=== PATIENT | female | born 1990 | race Caucasian/White ===

== ENCOUNTER 2017-08-25 18:05 | Emergency (ER) | payer OTHER ==
[~2017-08-25] VITALS: Ht 160 cm; Wt 64.0 kg
[~2017-08-25 18:05] MED LIST: AFRIN MENTHOL S15 ML NS; BENTYL 20 MG TA20 M1 PO; CIPRO500 MG PO; MOBIC15 MG PO; NOHOMEMEDICATIONS; NORCO 5-325 TA1 EACH PO; ZOFRAN ODT4 MG PO
[2017-08-25] MEDS ORDERED: BENADRYL25 MG PO (18:25)
[2017-08-25] MEDS ORDERED: TRIAMCINOLONE A80 G2 TOP (18:25)
[2017-08-25 18:38] VITALS: BP 98/55
== END 2017-08-25 18:38 | disposition home or self-care (01) ==
LOC: M.ERS 18:05
DX: R21 Rash and other nonspecific skin eruption (principal); F17.210 Nicotine dependence, cigarettes, uncomplicated; Z88.8 Allergy status to other drugs, medicaments and biological substances

== ENCOUNTER 2017-09-07 22:03 | Emergency (ER) | payer OTHER ==
[~2017-09-07] VITALS: Ht 160 cm; Wt 64.0 kg
[~2017-09-07 22:03] MED LIST changes: +BENADRYL25 MG PO; +TRIAMCINOLONE A80 G2 TOP
[2017-09-07 22:31] LABS: ABSOLUTE BASOPHILS 0.1 thou/uL (0.0-0.2); ABSOLUTE EOSINOPHILS 0.1 thou/uL (0.0-0.7); ABSOLUTE LYMPHOCYTES 2.1 thou/uL (0.8-5.3); ABSOLUTE MONOCYTES 0.6 thou/uL (0.0-1.2); ABSOLUTE NEUTROPHILS 6.9 thou/uL (1.6-8.1); BASOPHILS 0.6 %; EOSINOPHILS 1.2 %; HEMATOCRIT 39.3 % (37.0-47.0); HEMOGLOBIN 13.4 gm/dL (12.0-15.0); LYMPHOCYTES 21.4 %; MCH 31.5 pg (26.0-34.0); MCV 92.6 fL (80.0-100.0); MONOCYTES 6.1 %; MPV 8.9 fl. (7.2-11.1); NUCLEATED RBCS 0 /100WBC; PLATELET COUNT* 158 thou/uL (150-400); POLYS 70.7 %; RBC 4.24 mil/uL (4.20-5.00); RDW-CV 11.9 % (10.5-14.5); WBC 9.8 thou/uL (4.0-11.0)
[2017-09-07 22:38] LABS: CALCIUM 8.5 mg/dL (8.5-10.1); CREATININE 0.7 mg/dL (0.6-1.3); POTASSIUM 3.3 mmol/L (3.5-5.1)
[2017-09-07 22:43] LABS: ALBUMIN 3.4 g/dL (3.4-5.0); TOTAL BILIRUBIN 0.3 mg/dL (<0.1-1.0); TOTAL PROTEIN 6.6 g/dL (6.4-8.2)
[2017-09-07 23:19] LABS: URINE BILIRUBIN NEGATIVE (Negative); URINE BLOOD 3+ (Negative); URINE CLARITY CLOUDY; URINE COLOR YELLOW; URINE GLUCOSE-RANDOM NEGATIVE (Negative); URINE KETONES NEGATIVE (Negative); URINE LEUKOCYTES-REFLEX NEGATIVE (Negative); URINE NITRITE-REFLEX NEGATIVE (Negative); URINE PROTEIN NEGATIVE (Negative); URINE SPECIFIC GRAVITY >= 1.030 (1.005-1.030); URINE UROBILINOGEN 0.2 E.U./dl (0.2-1.0)
[2017-09-07 23:24] LABS: SQUAMOUS 0-3 Few /LPF (0-3); URINE WBC-REFLEX None Seen /HPF (0-5)
[2017-09-07 23:25] LABS: AMORPHOUS URATES Many /LPF (None Seen); BACTERIA-REFLEX 1-9 Few /HPF (None Seen); CASTS None Seen /LPF (None Seen); MUCUS 0-3 Light strn/LPF (None Seen)
[2017-09-08 01:08] VITALS: BP 119/70
== END 2017-09-08 01:10 | disposition home or self-care (01) ==
LOC: M.ERS 22:03
PROVIDERS: Emergency Medicine; Physician Assistant
DX: O20.0 Threatened abortion (principal); O99.331 Smoking (tobacco) complicating pregnancy, first trimester; Z88.8 Allergy status to other drugs, medicaments and biological substances; Z3A.01 Less than 8 weeks gestation of pregnancy

== ENCOUNTER 2020-08-28 21:01 | Emergency (ER) | payer OTHER, MEDICAID ==
[~2020-08-28] VITALS: Ht 160 cm; Wt 72.6 kg
[2020-08-28 22:09] LABS: ABSOLUTE LYMPHOCYTES 0.7 thou/uL (0.8-5.3); ABSOLUTE MONOCYTES 0.5 thou/uL (0.0-1.2); ABSOLUTE NEUTROPHILS 3.5 thou/uL (1.6-8.1); BASOPHILS 0.1 %; EOSINOPHILS 0.5 %; HEMATOCRIT 39.9 % (37.0-47.0); HEMOGLOBIN 13.5 gm/dL (12.0-15.0); LYMPHOCYTES 14.7 %; MCH 30.9 pg (26.0-34.0); MCHC 33.9 g/dL (28.0-37.0); MONOCYTES 9.7 %; MPV 9.3 fl. (7.2-11.1); NUCLEATED RBCS 0 /100WBC; PLATELET COUNT* 110 thou/uL (150-400); RBC 4.39 mil/uL (4.20-5.00); WBC 4.7 thou/uL (4.0-11.0)
[2020-08-28 22:16] LABS: CALCIUM 8.7 mg/dL (8.5-10.1); CREATININE 0.8 mg/dL (0.6-1.3); POTASSIUM 3.6 mmol/L (3.5-5.1)
[2020-08-28] MEDS ORDERED: ZOFRAN ODT4 MG PO ×2 (22:39→22:40)
[2020-08-29 00:50] VITALS: BP 102/59
== END 2020-08-29 00:50 | disposition home or self-care (01) ==
LOC: M.ERS 21:01
PROVIDERS: Emergency Medicine
DX: R11.2 Nausea with vomiting, unspecified (principal); R19.7 Diarrhea, unspecified; F17.210 Nicotine dependence, cigarettes, uncomplicated; Z98.890 Other specified postprocedural states

== ENCOUNTER 2021-01-27 20:05 | Emergency (ER) | payer OTHER, MEDICAID ==
[~2021-01-27] VITALS: Ht 160 cm; Wt 63.5 kg
[2021-01-27 21:18] VITALS: BP 124/72
== END 2021-01-27 21:18 | disposition home or self-care (01) ==
LOC: M.ERS 20:05
DX: S93.401A Sprain of unspecified ligament of right ankle, initial encounter (principal); F17.210 Nicotine dependence, cigarettes, uncomplicated; Z98.890 Other specified postprocedural states; Z88.8 Allergy status to other drugs, medicaments and biological substances; W17.2XXA Fall into hole, initial encounter; Y93.02 Activity, running; Y92.096 Garden or yard of other non-institutional residence as the place of occurrence of the external cause; Y99.8 Other external cause status

== ENCOUNTER 2021-03-18 18:39 | Emergency (ER) | payer OTHER, MEDICAID ==
[~2021-03-18] VITALS: Ht 160 cm; Wt 65.8 kg
[2021-03-18 19:39] LABS: INFLUENZA A ANTIGEN Negative (Negative); INFLUENZA B ANTIGEN Negative (Negative)
[2021-03-18] MEDS ORDERED: AUGMENTIN 875-1 EACH PO (19:51)
[2021-03-18] MEDS ORDERED: PROAIR HFA8.5 GM INH (19:51)
[2021-03-18] MEDS ORDERED: PREDNISONE 20 M20 MG PO (19:51)
[2021-03-18 20:01] VITALS: BP 122/74
--- NOTE | 2021-03-19 10:00 | EKG ---
[place] [address] ELECTROCARDIOGRAM REPORT Name: HUGONANCY MARTI Room: [facility]#: [id number] Admission: 03/18/21 Attend Phys: Discharge: 03/18/21 Date of : 89 Date of Service: 03/18/21 1900 Report #: [id number] THIS REPORT FOR: //name// [facility] ED Test Date: 2021-03-18 Test Time: 19:00:07 Pat Name: NANCY BRYAN Department: Room: Gender: Retail Sales Merchandiser: : 1990 Requested By: Sonia Velazquez Order Number: [id number] MD: Miguel Laughlin Measurements Intervals [place] Rate: 75 P: 57 NM: 172 QRS: 75 QRSD: 90 T: 61 QT: 380 QTc: 425 Interpretive Statements Sinus rhythm Baseline wander in lead(s) V1,V2,V3 No previous ECG available for comparison Electronically Signed On 03-19-2021 10:00:18 [employer]ALL[employer] TECHNICIAN by Miguel Laughlin [email or web address] <ELECTRONICALLY SIGNED> By: Miguel Laughlin MD, [facility] 03/19/21 1000 190 99 Miguel Laughlin MD, [facility] /EPI
== END 2021-03-18 20:03 | disposition home or self-care (01) ==
LOC: M.ERS 18:39
PROVIDERS: Physician Assistant
DX: J01.90 Acute sinusitis, unspecified (principal); Z20.822 Contact with and (suspected) exposure to COVID-19; J06.9 Acute upper respiratory infection, unspecified; G43.909 Migraine, unspecified, not intractable, without status migrainosus; M19.90 Unspecified osteoarthritis, unspecified site; F17.210 Nicotine dependence, cigarettes, uncomplicated; F12.90 Cannabis use, unspecified, uncomplicated; Z88.8 Allergy status to other drugs, medicaments and biological substances; Z98.890 Other specified postprocedural states